=== PATIENT | female | born 1965 | race Caucasian/White ===

== ENCOUNTER 2020-12-21 19:53 | Emergency (ER) | payer BC ==
[~2020-12-21] VITALS: Ht 154.9 cm; Wt 56.8 kg
[2020-12-21 20:00] VITALS: BP 131/74
[2020-12-21] MEDS ORDERED: ONDA4TAB6 PO (21:45)
[2020-12-21] MEDS ORDERED: HYDR-3965 PO (21:45)
== END 2020-12-21 22:10 | disposition home or self-care (01) ==
LOC: ER 19:54
DX: S82.842A Displaced bimalleolar fracture of left lower leg, initial encounter for closed fracture (principal); M25.572 Pain in left ankle and joints of left foot; Z79.899 Other long term (current) drug therapy; W18.40XA Slipping, tripping and stumbling without falling, unspecified, initial encounter; Y93.89 Activity, other specified; Y92.89 Other specified places as the place of occurrence of the external cause; Y99.8 Other external cause status
CPT/HCPCS: 29515; 73610; 99284

== ENCOUNTER 2020-12-29 08:06 | Day surgery (SDC) | payer BC ==
[2020-12-29] VITALS (14 sets, daily range): BP systolic 93–121; BP diastolic 44–70
[~2020-12-29] VITALS: Ht 154.9 cm; Wt 59.0 kg
[~2020-12-29 08:06] MED LIST: ALPR1TAB7 PO; ESTR42.510 VG; PROGESTERONE CREAM TOP; TEST75GE TOP; famotidine 20mg tablet PO ONE; ringers solution, lacted 1,000 ML IV SCH
[2020-12-29] MEDS ORDERED: cefazolin/dext.iso 2gm/100ml 100 ML IV ONE (08:55)
[2020-12-29 09:30] LABS: BASOPHILS % (AUTO) 0.6 % (0-1); EOSINOPHILS # (AUTO) 0.3 X10'3 (0-0.9); EOSINOPHILS % (AUTO) 4.6 % (0-6); LYMPHOCYTES # (AUTO) 1.6 X10'3 (1.1-4.8); LYMPHOCYTES % (AUTO) 26.3 % (21-51); MEAN CORPUSCULAR HEMOGLOBIN 29.7 PG (27.0-31.0); MEAN CORPUSCULAR HGB CONC 33.7 g/dL (33.0-36.5); MEAN PLATELET VOLUME 7.2 FL (7.4-10.4); MONOCYTES # (AUTO) 0.6 X10'3 (0-0.9); NEUTROPHILS # (AUTO) 3.6 X10'3 (1.8-7.7); NEUTROPHILS % (AUTO) 58.5 % (42-75); PRE OP HEMATOCRIT 41.4 % (35.0-45.0); PRE OP HEMOGLOBIN 13.9 g/dL (12.0-16.0); PRE OP PLATELET COUNT 287 X10'3 (140-440); RED CELL DISTRIBUTION WIDTH 13.8 % (11.5-14.5)
[2020-12-29 09:40] LABS: ALBUMIN 3.7 G/DL (3.4-5.0); ALBUMIN/GLOBULIN RATIO 1.1 (1.1-1.5); ALKALINE PHOSPHATASE 81 IU/L (46-116); BLOOD UREA NITROGEN 19 MG/DL (7-18); BUN/CREATININE RATIO 32.8 (6.6-38.0); CALCIUM 8.7 MG/DL (8.5-10.1); CHLORIDE 105 MMOL/L (99-107); CREATININE 0.58 MG/DL (0.40-0.90); PRE OP ALT 48 U/L (30-65); PRE OP ANION GAP 7 (8-16); PRE OP AST 34 U/L (10-37); PRE OP BILIRUB, TOTAL 0.2 MG/DL (0.0-1.0); PRE OP GLUCOSE 83 MG/DL (70-104); PRE OP POTASSIUM 4.2 MMOL/L (3.4-5.1); PRE OP SODIUM 141 MMOL/L (135-145); TOTAL PROTEIN 7.1 G/DL (6.4-8.2); eGFR > 90 ML/MIN
[2020-12-29] MEDS ORDERED: ketorolac trometh. 30mg/ml inj. ONE (10:12)
[2020-12-29] MEDS ORDERED: cloNIDine hcl/PF 100mcg/ml inj ONE (10:12)
[2020-12-29] MEDS ORDERED: sevoflurane 250ml liquid IH ONE (10:12)
[2020-12-29] MEDS ORDERED: MIDAZolam 1 MG/ML 5ML VIAL ONE (10:15)
[2020-12-29] MEDS ORDERED: ondansetron/PF 4mg/2ml inj ONE (10:42)
[2020-12-29] MEDS ORDERED: ROPIVAcaine 0.5% (5mg/ml) 30ml vial ONE ×2 (10:42)
[2020-12-29] MEDS ORDERED: LIDOcaine 2% (20mg/ml) 5ml vial ONE (10:42)
[2020-12-29] MEDS ORDERED: propofol inj 20 ML IV ONE (10:42)
[2020-12-29] MEDS ORDERED: dexamethasone sod phosphate 4mg/ml inj. ONE (10:42)
[2020-12-29] MEDS ORDERED: acetaminophen 1,000mg/100ml IV 100 ML IV PRN (11:15)
[2020-12-29] MEDS ORDERED: hydrALAZINE 20mg/ml inj. IV PRN (11:15)
[2020-12-29] MEDS ORDERED: ondansetron/PF 4mg/2ml inj IV PRN (11:15)
[2020-12-29] MEDS ORDERED: meperidine/PF 25mg/ml syringe IV PRN ×3 (11:15)
[2020-12-29] MEDS ORDERED: proCHLORperazine 10 MG/2 ml inj IV PRN (11:15)
[2020-12-29] MEDS ORDERED: labetalol 20mg/4ml (5mg/ml) syringe IV PRN (11:15)
[2020-12-29] MEDS ORDERED: morphine 4 MG/ML inj SYRINge IV PRN (11:15)
[2020-12-29] MEDS ORDERED: morphine 2 MG/ML inj. syringe IV PRN (11:15)
[2020-12-29] MEDS ORDERED: ringers solution, lacted 1,000 ML IV SCH (11:15)
[2020-12-29] MEDS ORDERED: morphine 10mg/ml inj. ONE (11:20)
--- NOTE | 2020-12-29 14:01 | NUR ---
PT USES W/C AND IS STEADY AND ABLE TO TRANSFER HERSELF SAFELY FROM BED TO W/C TO TOILET TO W/C, VOIDED. D/C INSTRUCTIONS GIVEN AND GONE OVER W/PT WHO VERBALIZED UNDERSTANDING. PT D/CD TO HOME VIA W/C TO PRIVATE VEHICLE W/O INCIDENT. Addendum: 12/29/20 at 1456 by Elena Leonardo RN Amended: Links added.
--- NOTE | 2020-12-29 14:01 | NUR ---
Received from OR via BED, accompanied by Anesthesiologist DR SCHAEFER and report given by Anesthesiologist. 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 Addendum: 12/29/20 at 1446 by Elena Leonardo RN Amended: Links added.
== END 2020-12-29 14:01 | disposition home or self-care (01) ==
LOC: PAS 08:06
PROVIDERS: ATTEND Orthopaedic Surgery
DX: S82.842A Displaced bimalleolar fracture of left lower leg, initial encounter for closed fracture (principal); Z20.822 Contact with and (suspected) exposure to COVID-19; G89.18 Other acute postprocedural pain; F41.9 Anxiety disorder, unspecified; Z79.899 Other long term (current) drug therapy; Z87.891 Personal history of nicotine dependence; Z98.890 Other specified postprocedural states; W19.XXXA Unspecified fall, initial encounter; Y93.89 Activity, other specified; Y92.89 Other specified places as the place of occurrence of the external cause; Y99.8 Other external cause status
CPT/HCPCS: 27814; 36415; 64445; 64447; 73610; 76000; 76942; 80053; 85025; 87426; 93005; A6222; C1713; J0735; J1100; J1885; J2001; J2250; J2270; J2405; J2704; A4618; A6449; A7000; J2795; J7120